=== PATIENT | female | born 1985 | race Two or more races ===

== ENCOUNTER 2019-04-01 01:12 | Emergency (ER) | payer OTHER ==
[~2019-04-01] VITALS: Ht 157.5 cm; Wt 2.3 kg
--- NOTE | 2019-04-01 01:17 | NUR ---
bib paramedics and [employer] c/o feeling hot s/p meth use earlier tonight. pt aaox4 no acute distress noted, resp even and unlabored. pt appears anxious. pending er md bragg.
[2019-04-01] MEDS ORDERED: OLANZAPINE 10 MG VIAL IM ONE ×2 (02:35→03:00)
--- NOTE | 2019-04-01 02:45 | NUR ---
Patient discharged to [employer] custody in stable condition. Written and verbal after care instructions given. Patient verbalizes understanding of instruction. pt aaox4 no acute distress noted, resp even and unlabored. pt medically cleared for booking per ER MD.
[2019-04-01 02:49] VITALS: BP 141/85
== END 2019-04-01 02:49 ==
LOC: ER 01:21
DX: F15.129 Other stimulant abuse with intoxication, unspecified (principal); R51 Headache; G89.29 Other chronic pain; F17.200 Nicotine dependence, unspecified, uncomplicated; E66.9 Obesity, unspecified
CPT/HCPCS: 96372; 99283; J3490